=== PATIENT | female | born 1990 ===

== ENCOUNTER 2025-04-04 16:03 | Emergency (ER) | payer MEDICAID ==
[~2025-04-04] VITALS: Ht 167.6 cm; Wt 74.0 kg
[2025-04-04 16:14] VITALS: BP 129/93; PULSE 84; RESP 15; TEMP 97.8; O2SAT 98
--- NOTE | 2025-04-04 16:27 | Physician Documentation ---
History of Present Illness ~ Chief Complaint: Rash Stated Complaint: RASH Time Seen by MD: 16:18 HPI This is a 34-year-old female who presents with concern for a small itchy rash to her left forearm present for the past three days. Patient reports rash is itchy not painful. Patient reports no other acute symptoms or concerns including no fever. Medication Reconciliation Allergies: Coded Allergies: No Known Allergies (Unverified , 04/04/25) Scheduled Clotrimazole (Clotrimazole), 1 APPLIC TOP Q12H Review of Systems ROS As stated above in the HPI, otherwise all systems are reviewed and negative. Physical Exam Vital Signs: Temperature: 97.8, Heart Rate: 84, Respiratory Rate: 15, BP: 129/93, Pulse Oximetry: 98, Weight: 74.000 Physical Exam VITALS: Reviewed and as above. GENERAL: Alert, nontoxic appearing, no apparent distress. RESPIRATORY: No increased work of breathing, no respiratory distress, speaking in full clear sentences SKIN: Approximately 7 cm round scaly erythematous rash to left lateral forearm nontender to palpation, no fluctuance, no induration Progress Results/Orders Results/Orders Vital Signs 04/04/25 16:14 Temp 97.8 Pulse 84 Resp 15 B/P (MAP) 129/93 Pulse Ox 98 Medical Decision Making Additional information obtaine: N/A Findings This 34-year-old female presented with a small round itchy rash to her left forearm, physical exam is consistent with tinea corporis, trimmed the plan with topical antifungal. Patient is otherwise well appearing and reports no other acute symptoms or concerns. Patient appropriate for outpatient follow up. Differential Dx:Considerations: Include: Abscess, Candidiasis, Drug reaction, Erysipelas, Herpes simplex, Impetigo, Intertrigo, Lymes disease, Pediculosis, Pityriasis rosea, Psoriaisis, Scabies, Tinea, Urticaria, Varicella, Viral exanthema, Other (Cellulitis) Departure Time of Disposition: 16:22 Disposition: 01 HOME / SELF CARE / HOMELESS Impression: Primary Impression: Tinea corporis Condition: Improved (ERASED) Discharge Instructions: Body Ringworm Additional Instructions: Please use the prescribed cream for one-week after rash starts to go away. Please follow up with your primary care provider in the next few days. Please return to the emergency department for any new or worsening concerning symptoms. Referrals: NO PRIMARY CARE PROVIDER (PCP) Prescriptions Clotrimazole (Clotrimazole) 1 % Cream..g. 1 APPLIC TOP Q12H for 14 Days, #30 GM 0 Refills apply to affected area(s) Prov: ELIZABETH DARBY 04/04/25 Education Educated: Patient Educated regarding: diagnosis, treatment, prognosis, need for follow up Signature Scribe Signature: No scribe Attestation: The note accurately reflects work and decisions made by me.NE Lizama 04/04/25 18:58 ELIZABETH DARBY Apr 04, 2025 16:27
[2025-04-04] MEDS ORDERED: CLOT30CR19 TOP (16:46)
== END 2025-04-04 17:55 | disposition home or self-care (01) ==
LOC: ER 16:05
DX: B35.4 Tinea corporis (principal); Z79.899 Other long term (current) drug therapy
CPT/HCPCS: 99282; 99283